=== PATIENT | male | born 1950 | race Caucasian/White ===

== ENCOUNTER → 2017-08-02 | Outpatient (CLI) | payer OTHER ==
[~2017-08-02] VITALS: Ht 177.8 cm; Wt 82.6 kg
[~2017-08-02] MED LIST: PRINIVIL5 MG PO
== END | disposition home or self-care (01) ==
LOC: AMB 08:30
PROC: 0DBP8ZX Excision of Rectum, Via Natural or Artificial Opening Endoscopic, Diagnostic (ICD-10-PCS; principal; 2017-08-02)
DX: Z12.11 Encounter for screening for malignant neoplasm of colon (principal); K62.1 Rectal polyp; Z86.010 Personal history of colon polyps; I10 Essential (primary) hypertension; Z82.49 Family history of ischemic heart disease and other diseases of the circulatory system; Z84.1 Family history of disorders of kidney and ureter
CPT/HCPCS: 88305; 93005; J3010